=== PATIENT | female | born 1945 | race Caucasian/White ===

== ENCOUNTER 2020-10-30 19:41 | Emergency (ER) | payer MEDICARE ==
[~2020-10-30] VITALS: Ht 162.6 cm; Wt 65.8 kg
[2020-10-30 20:05] VITALS: BP_SYST 164
[2020-10-30 21:35] LABS: BILIRUBIN,URINE NEGATIVE (NEGATIVE); CLARITY/URINE CLEAR (CLEAR); COLOR,URINE YELLOW (YELLOW); GLUCOSE,URINE NEGATIVE (NEGATIVE); KETONES,URINE NEGATIVE (NEGATIVE); LEUKOCYTE ESTERASE ,URINE TRACE (NEGATIVE); NITRITE, URINE NEGATIVE (NEGATIVE); PROTEIN URINE NEGATIVE (NEGATIVE); UROBILINOGEN,URINE 0.2 (0.2-1.0)
[2020-10-30 21:47] LABS: BLOOD, URINE TRACE (NEGATIVE)
[2020-10-30 21:48] LABS: BASOPHILS # (AUTO) 0.1 K/uL (0.0-0.2); BASOPHILS % (AUTO) 0.7 % (0.0-2.0); EOSINOPHILS # (AUTO) 0.2 K/uL (0.0-0.4); EOSINOPHILS % (AUTO) 1.6 % (0.0-4.0); HEMATOCRIT 44.1 % (36-48); HEMOGLOBIN 14.8 g/dL (12.0-16.0); LYMPHOCYTES # (AUTO) 0.9 K/uL (1.0-5.5); LYMPHOCYTES % (AUTO) 9.6 % (20.5-51.5); MEAN CORPUSCULAR HEMOGLOBIN 32 pg (27-31); MEAN CORPUSCULAR HGB CONC 34 % (32-36); MEAN CORPUSCULAR VOLUME 94 fL (79.0-98.0); MONOCYTES # (AUTO) 0.7 K/uL (0.0-1.0); MONOCYTES % (AUTO) 6.8 % (1.7-9.3); NEUTROPHILS # (AUTO) 7.9 K/uL (1.8-7.7); NEUTROPHILS % (AUTO) 81.3 % (40.0-70.0); PLATELET COUNT (AUTO) 411 K/uL (130-430); RED BLOOD CELL COUNT(AUTO) 4.71 MIL/uL (4.2-6.2); RED CELL DISTRIBUTION WIDTH 13.4 % (9.0-15.0); WHITE BLOOD COUNT (AUTO) 9.7 K/uL (4.8-10.8)
[2020-10-30 21:52] LABS: ANION GAP 7 (5-15); CALCIUM 9.2 mg/dL (8.4-11.0); CHLORIDE 102 mmol/L (98-107); CREATININE 0.91 mg/dL (0.55-1.30); GLUCOSE 77 mg/dL (70-99); SODIUM SERUM 136 mmol/L (136-145); UREA NITROGEN, BLOOD 15 mg/dL (8-21)
[2020-10-30 21:53] LABS: BACTERIA,URINE MANY /HPF (None Seen); MUCUS,URINE None Seen /LPF (None Seen)
[2020-10-30 22:11] LABS: ALANINE AMINOTRANSFERASE 36 U/L (12-78); ALBUMIN 3.8 g/dL (3.4-4.8); ASPARTATE AMINOTRANSFERASE 20 U/L (10-37); BILIRUBIN,DIRECT 0.2 mg/dL (0.0-0.3); TOTAL BILIRUBIN 0.5 mg/dL (0.0-1.0)
[2020-10-30] MEDS ORDERED: IPRATROPIUM BROM 0.5 MG/2.5 ML VIAL.NEB (ATROVENT) INH SCH (22:30)
[2020-10-30 23:40] VITALS: BP_SYST 146
== END 2020-10-30 23:40 | disposition home or self-care (01) ==
LOC: SED 19:41
DX: N39.0 Urinary tract infection, site not specified (principal); R55 Syncope and collapse
CPT/HCPCS: 36415; 80048; 80076; 81000-TC; 84484; 85025; 87086; 93005; 94640; 99284

== ENCOUNTER 2021-12-27 15:42 | Emergency (ER) | payer MEDICARE ==
[~2021-12-27] VITALS: Ht 162.6 cm; Wt 61.2 kg
[2021-12-27 15:42] VITALS: BP_SYST 168
[2021-12-27] MEDS ORDERED: NACL 0.9% 1,000 ML IV ONE (16:00)
[2021-12-27] MEDS ORDERED: dilTIAZem HCL IVP 5 MG/ML VIAL IVP ONE (16:00)
[2021-12-27 16:33] LABS: BASOPHILS # (AUTO) 0.1 K/uL (0.0-0.2); BASOPHILS % (AUTO) 0.5 % (0.0-2.0); EOSINOPHILS # (AUTO) 0.3 K/uL (0.0-0.4); EOSINOPHILS % (AUTO) 2.4 % (0.0-4.0); HEMATOCRIT 44.5 % (36-48); HEMOGLOBIN 14.9 g/dL (12.0-16.0); LYMPHOCYTES # (AUTO) 1.1 K/uL (1.0-5.5); LYMPHOCYTES % (AUTO) 9.6 % (20.5-51.5); MEAN CORPUSCULAR HEMOGLOBIN 31 pg (27-31); MEAN CORPUSCULAR HGB CONC 33 % (32-36); MEAN CORPUSCULAR VOLUME 93 fL (79.0-98.0); MONOCYTES # (AUTO) 0.8 K/uL (0.0-1.0); MONOCYTES % (AUTO) 7.3 % (1.7-9.3); NEUTROPHILS # (AUTO) 9.1 K/uL (1.8-7.7); NEUTROPHILS % (AUTO) 80.2 % (40.0-70.0); PLATELET COUNT (AUTO) 404 K/uL (130-430); RED BLOOD CELL COUNT(AUTO) 4.78 MIL/uL (4.2-6.2); RED CELL DISTRIBUTION WIDTH 14.2 % (9.0-15.0); WHITE BLOOD COUNT (AUTO) 11.4 K/uL (4.8-10.8)
[2021-12-27 17:09] LABS: ANION GAP 6 (5-15); CALCIUM 9.8 mg/dL (8.4-11.0); CHLORIDE 102 mmol/L (98-107); GLUCOSE 115 mg/dL (70-99); POTASSIUM 3.6 mmol/L (3.5-5.1); SODIUM SERUM 138 mmol/L (136-145); UREA NITROGEN, BLOOD 17 mg/dL (8-21)
[2021-12-27] MEDS ORDERED: DILTIAZEM HCL 30 MG TABLET PO ONE (17:15)
[2021-12-27 17:26] LABS: ALANINE AMINOTRANSFERASE 28 U/L (12-78); ALBUMIN 3.7 g/dL (3.4-4.8); ASPARTATE AMINOTRANSFERASE 16 U/L (10-37); PHOSPHORUS 3.5 mg/dL (2.7-4.5); THYROID STIMULATING HORMONE 1.96 uIu/mL (0.36-3.74); TOTAL BILIRUBIN 0.3 mg/dL (0.0-1.0)
[2021-12-27 23:57] VITALS: BP_SYST 165
== END 2021-12-27 23:57 | disposition short-term general hospital (02) ==
LOC: SED 15:42
DX: I48.20 Chronic atrial fibrillation, unspecified (principal); Z20.822 Contact with and (suspected) exposure to COVID-19
CPT/HCPCS: 36415; 71045; 80053; 83735; 83880; 84100; 84443; 84484; 85025; 87426; 93005; 96361; 96374; 99285; J3490; J7030

== ENCOUNTER → 2022-08-17 | Emergency (ER) | payer MEDICARE ==
[~2022-08-17] VITALS: Ht 167.6 cm; Wt 83.9 kg
[~2022-08-17] MED LIST: IBUPROFEN 600 MG TABLET PO ONE; METOCLOPRAMIDE HCL 10 MG/2 ML VIAL IM ONE; ONDANSETRON 4 MG ODT TAB PO ONE
[2022-08-17 05:45] VITALS: BP_SYST 183
--- NOTE | 2022-08-17 05:47 | NUR ---
PT HERE ACCOMPANIED BY HER DAUGHTER C/O CHEST WALL PAIN AFTER CARRYING A CASE OF WATER BOTTLE YESTERDAY. DENIES FALL/TRAUMA. PT AAOX4, NOT IN ANY DISTRESS. PT GOWNED AND PLACED ON CARDIAC MONITORS. PENDING MD LU
--- NOTE | 2022-08-17 06:17 | NUR ---
Dr. Sanchez at bedside with patient for evaluation.
--- NOTE | 2022-08-17 06:48 | NUR ---
Pt reports nausea. MD made aware.
--- NOTE | 2022-08-17 07:15 | NUR ---
REPORT RECEIVED FROM SILVIA RN FOR CONTINUING CARE
--- NOTE | 2022-08-17 07:20 | NUR ---
Report given to Casie SANABRIA to assume care. All questions and concerns answered at this time.
--- NOTE | 2022-08-17 07:22 | NUR ---
PT IS AAOX4, RESTING IN GURNEY, DENIES PAIN, NAD NOTED, VSS
--- NOTE | 2022-08-17 07:38 | NUR ---
LAB AT THE BEDSIDE FOR BLOOD DRAW
[2022-08-17 07:44] LABS: BASOPHILS # (AUTO) 0.1 K/uL (0.0-0.2); BASOPHILS % (AUTO) 0.4 % (0.0-2.0); EOSINOPHILS % (AUTO) 0.2 % (0.0-4.0); HEMATOCRIT 40.9 % (36-48); LYMPHOCYTES # (AUTO) 0.8 K/uL (1.0-5.5); LYMPHOCYTES % (AUTO) 5.3 % (20.5-51.5); MEAN CORPUSCULAR VOLUME 92 fL (79.0-98.0); MONOCYTES # (AUTO) 0.6 K/uL (0.0-1.0); MONOCYTES % (AUTO) 3.7 % (1.7-9.3); NEUTROPHILS # (AUTO) 14.1 K/uL (1.8-7.7); NEUTROPHILS % (AUTO) 90.4 % (40.0-70.0); PLATELET COUNT (AUTO) 321 K/uL (130-430); RED BLOOD CELL COUNT(AUTO) 4.43 MIL/uL (4.2-6.2); RED CELL DISTRIBUTION WIDTH 13.8 % (9.0-15.0); WHITE BLOOD COUNT (AUTO) 15.6 K/uL (4.8-10.8)
[2022-08-17 08:05] LABS: ANION GAP 10 (5-15); CHLORIDE 104 mmol/L (98-107); GLUCOSE 142 mg/dL (70-99); POTASSIUM 3.6 mmol/L (3.5-5.1); UREA NITROGEN, BLOOD 12 mg/dL (8-21)
--- NOTE | 2022-08-17 08:05 | NUR ---
Patient transported to radiology via GURNEY, accompanied by STAFF.
[2022-08-17 08:18] LABS: ALANINE AMINOTRANSFERASE 21 U/L (12-78); ALBUMIN 3.5 g/dL (3.4-4.8); ASPARTATE AMINOTRANSFERASE 9 U/L (10-37); TOTAL BILIRUBIN 0.5 mg/dL (0.0-1.0)
--- NOTE | 2022-08-17 10:04 | NUR ---
SW DAUGHTER JOSH FOR STATUS UPDATE AND TRANSFER TO [facility]
--- NOTE | 2022-08-17 11:32 | NUR ---
# 20 gauge angiocath placed to RAC. Use of asceptic technique. Opsite placed over site. Blood return noted. Flushed with 10 cc of normal saline. No evidence of infiltration noted. Patient tolerated well.
--- NOTE | 2022-08-17 11:38 | NUR ---
Patient to be transferred to [facility] Is being transferred due to higher level of care. Receiving facility has accepting physician and available space. ER physician has signed transfer form. Patient or responsible libertarian has agreed to transfer and signed form. Patient belongings inventoried and will be sent with patient. Copy of nursing notes, lab reports, EKG, Physicians Orders and X-rays to be sent with patient. Report called to DANIELE SUBRAMANIAN at receiving facility. Receiving physician is DR. RAMIREZ. [facility] ambulance service has been called for transfer. ETA is [phone].
[2022-08-17 11:55] VITALS: BP_SYST 162
== END | disposition home or self-care (01) ==
LOC: SED 05:37
DX: K80.20 Calculus of gallbladder without cholecystitis without obstruction (principal); Z20.822 Contact with and (suspected) exposure to COVID-19
CPT/HCPCS: 99285; 74176; 71045; 87426; 80053; 83880; 85025; 84484; 36415; 76376; 96372; Q0162; J2765